=== PATIENT | male | born 1985 | race African-American/Black ===

== ENCOUNTER 2020-04-10 00:15 | Emergency (ER) | payer MEDICAID ==
[~2020-04-10] VITALS: Ht 172.7 cm; Wt 75.0 kg
[2020-04-10] MEDS ORDERED: SODIUM CHLORIDE 0.9% 1,000 ML IV ONE (00:44)
[2020-04-10] MEDS ORDERED: MECLIZINE 25MG TABLET PO ONE ×2 (01:15→05:30)
[2020-04-10 01:18] LABS: CHLORIDE 106 mEq/L (98-107)
[2020-04-10 01:22] LABS: BASOPHILS % 0.4 % (0.0-2.0); EOSINOPHILS % 1.4 % (0.0-5.0); HEMATOCRIT. 44.4 % (42.0-52.0); HEMOGLOBIN. 15.5 g/dL (14.0-18.0); LYMPHOCYTES % 15.5 % (20.0-50.0); MEAN CORPUSCULAR HEMOGLOBIN 31.3 pg (28.0-32.0); MEAN CORPUSCULAR VOLUME 89.6 fL (80.0-94.0); MEAN PLATELET VOLUME 10.5 fl (7.4-10.4); MONOCYTES % 5.4 % (2.0-8.0); NEUTROPHILS % 77.3 % (40.0-76.0); PLATELET 156 x1000/uL (130-400); RED BLOOD CELL COUNT 4.95 mill/uL (4.7-6.1); RED CELL DISTRIBUTION WIDTH 14.1 % (11.6-14.6)
[2020-04-10 05:30] VITALS: BP 108/69
== END 2020-04-10 05:52 | disposition home or self-care (01) ==
LOC: ER 00:15
DX: R42 Dizziness and giddiness (principal); R11.0 Nausea
CPT/HCPCS: 36415; 70450; 71045; 80053; 83880; 84484; 85025; 93005; 96360; 99285; J7030; J8597